=== PATIENT | female | born 1970 | race African-American/Black ===

== ENCOUNTER 2020-04-11 03:55 | Emergency (ER) | payer SELFPAY ==
[2020-04-11] MEDS ORDERED: Adacel (T-DAP) 0.5 ML SYRINGE ONE (04:28)
[2020-04-11] MEDS ORDERED: Lidocaine 1% (PF) 30 ML VIAL ONE (04:28)
[2020-04-11] MEDS ORDERED: Ondansetron ODT 4 MG TAB ONE (04:44)
[2020-04-11 06:29] LABS: Hemoglobin 12.5 g/dL (12.0-16.0); Mean Corpuscular Volume 93.1 fL (78.0-98.0); Red Blood Cell (RBC) Count 4.29 mill/uL (4.20-5.40); White Blood Cell (WBC) Count 14.3 thou/uL (4.8-10.8)
[2020-04-11 06:30] LABS: #Basophils 0.1 thou/uL (0.0-0.2); #Lymphocytes 4.1 thou/uL (1.20-3.40); #Monocytes 0.9 thou/uL (0.11-0.59); #Neutrophils 9.2 thou/uL (1.40-6.50); %Basophils 0.8 % (0.0-1.0); %Eosinophils 0.3 % (0.0-10.0); %Lymphocytes 28.7 % (21.0-51.0); %Monocytes 6.4 % (0.0-10.0); %Neutrophils 63.8 % (42.0-75.0); Manual Diff?? NO; Mean Corpuscular HGB CONC 31.4 g/dL (32.0-36.0); Mean Corpuscular Hemoglobin 29.2 pg (27.0-31.0); Mean Platelet Volume 9.1 fL (7.4-10.4); Platelet Count 222 thou/uL (130-400); RBC Distribution Width 13.2 % (11.5-14.5)
[2020-04-11 06:48] LABS: ALT (SGPT) 13 U/L (8-55); AST (SGOT) 17 U/L (5-34); Albumin 3.6 g/dL (3.5-5.0); Alcohol 58 mg/dL (Less than 10); Alkaline Phosphatase 59 U/L (40-110); Anion Gap 23 mmol/L (10-20); BUN (Urea Nitrogen) 23 mg/dL (7.0-18.7); Bilirubin, Total 0.2 mg/dL (0.2-1.2); CK (CPK) 148 U/L (29-168); Calc. Creatinine Clearance 0 mL/min (70-130); Calcium 8.9 mg/dL (7.8-10.44); Carbon Dioxide 12 mmol/L (22-29); Chloride 111 mmol/L (98-107); Estimated GFR-MDRD 28; Globulin 2.9 g/dL (2.4-3.5); Glucose 147 mg/dL (70-105); Lipase 30 U/L (8-78); Potassium 4.8 mmol/L (3.5-5.1); Protein, Total 6.5 g/dL (6.0-8.3); Sodium 141 mmol/L (136-145)
[2020-04-11] MEDS ORDERED: Sodium Chloride 0.9% 250 ML 250 ML ONE (08:03)
[2020-04-11] MEDS ORDERED: Sodium Chloride 0.9% 100 ML ONE (08:03)
[2020-04-11] MEDS ORDERED: Piperacillin/Tazobactam 3.375 GM VIAL ONE (08:03)
[2020-04-11 08:10] LABS: Bilirubin Negative (Negative); Blood, Urine Trace (Negative); Clarity Clear (Clear); Glucose, Urine (Dipstick) Negative (Negative); Ketone, Urine Negative (Negative); Leukocyte Moderate (Negative); Nitrite Negative (Negative); Protein, Urine (Dipstick) Negative (Neg-Trace); Urobilinogen 0.2 mg/dL (Less than 2)
[2020-04-11 08:13] LABS: Bacteria/HPF Rare-Few HPF (None Seen); RBC/HPF 0-3 HPF (0-3)
[2020-04-11 08:25] LABS: Amphetamine Not Detected (NotDetected); Barbiturates Screen Not Detected (NotDetected); Benzodiazepine Screen Not Detected (NotDetected); Cocaine Metabolite Screen Detected (NotDetected); Medtox Control Line Valid? VALID (VALID); Methadone Not Detected (NotDetected); Methamphetamine Not Detected (NotDetected); Opiate Screen Not Detected (NotDetected); Oxycodone Screen Not Detected (NotDetected); Phencyclidine (PCP) Not Detected (NotDetected); THC/Cannabinoid Screen Not Detected (NotDetected); Tricyclic Screen Not Detected (NotDetected)
--- NOTE | 2020-04-11 08:57 | RAD ---
Exam:Left foot 3 views HISTORY: Dorsal laceration COMPARISON: 05/17/2011 FINDINGS: Lisfranc alignment is maintained. No fracture, cortical irregularity or periosteal reaction . No radiopaque foreign body. Minimal spurring of the calcaneus at the plantar aponeurosis insertion IMPRESSION: No radiopaque foreign body
--- NOTE | 2020-04-11 10:08 | RAD ---
CHEST 1 VIEW: HISTORY: Elevated blood pressure. FINDINGS: Heart size is within normal limits. The lungs are clear. No confluent pneumonia, overt edema, or pl eural effusion. IMPRESSION: No significant acute intrathoracic disease. POS: OFF
== END 2020-04-11 09:07 | disposition short-term general hospital (02) ==
LOC: NAV ERS 03:55
DX: S91.312A Laceration without foreign body, left foot, initial encounter (principal); R65.20 Severe sepsis without septic shock; F10.129 Alcohol abuse with intoxication, unspecified; N17.9 Acute kidney failure, unspecified; F17.210 Nicotine dependence, cigarettes, uncomplicated; Z23 Encounter for immunization; W25.XXXA Contact with sharp glass, initial encounter
CPT/HCPCS: 12001; 71045; 80053; 80306; 80307; 81003; 81015; 82550; 83605; 83690; 84484; 85025; 87040; 87086; 90471; 90715; 93005; 96360; 96361; 96365; 96368; J2001; J2543; J3370; J3490; J7050; Q0162

== ENCOUNTER 2021-08-05 10:19 | Emergency (ER) | payer SELFPAY, OTHER | END 2021-08-05 11:45 | disposition home or self-care (01) | LOC: NAV ERS 10:19 | DX: S13.4XXA Sprain of ligaments of cervical spine, initial encounter (principal); F17.210 Nicotine dependence, cigarettes, uncomplicated; V89.2XXA Person injured in unspecified motor-vehicle accident, traffic, initial encounter | CPT/HCPCS: 72125 ==